=== PATIENT | female | born 1985 | race Hispanic/Latino ===

== ENCOUNTER 2016-09-30 16:37 | Emergency (ER) | payer OTHER ==
[2016-09-30 17:08] VITALS: BP 116/71; PULSE 70; RESP 16; TEMP 98.2; O2SAT 100
--- NOTE | 2016-09-30 18:35 | ED PDOC ---
Upper Extremity Pain/Injury Time Seen by Provider: 09/30/16 17:53 Chief Complaint (Nursing): Upper Extremity Problem/Injury Chief Complaint (Provider): Left Finger Tingling/Bruising History Per: Patient History/Exam Limitations: no limitations Onset/Duration Of Symptoms: Days (x2) Current Symptoms Are (Timing): Still Present Additional Complaint(s): 17:53 Barrie Craft is a 31 year old female that presents to the ED with a chief complaint of tingling and bruising to the medial and distal phalanges on the second digit of her left hand. Patient states that she went to the ER yesterday and had blood work done, which showed no abnormalities, and was given hot compresses, but that her symptoms still remain. She also states that she has been developing a lot of cysts on her body recently, and that a few weeks ago there may have been "a blackhead" on the second digit of her left hand that she "picked at," but she is not completely certain if that might be the cause. Pt seen and evaluated by her PMD, Dr. Moreno, earlier today, who sent her to the ED fur further evaluation and management. PMD: Erik Moreno Past Medical History Reviewed: Historical Data, Nursing Documentation, Vital Signs Vital Signs: Last Vital Signs Temp 98.2 F 09/30/16 17:06 Pulse 70 09/30/16 17:06 Resp 16 09/30/16 17:06 BP 116/71 09/30/16 17:06 Pulse Ox 100 09/30/16 17:06 - Medical History PMH: No Chronic Diseases - Surgical History Surgical History: No Surg Hx - Family History Family History: States: Unknown Family Hx - Living Arrangements Living Arrangements: With Family - Social History Current smoker - smoking cessation education provided: No Alcohol: Social Drugs: Denies - Allergies Allergies/Adverse Reactions: Allergies Allergy/AdvReac Type Severity Reaction Status Date / Time amoxicillin Allergy RASH Verified 09/30/16 17:06 Penicillins Allergy RASH Verified 09/30/16 17:06 Review of Systems ROS Statement: Except As Marked, All Systems Reviewed And Found Negative Musculoskeletal: Positive for: Hand Pain (left hand bruising and tingling of second digit) Physical Exam - Reviewed Nursing Documentation Reviewed: Yes Vital Signs Reviewed: Yes - Physical Exam Appears: Positive for: Non-toxic, No Acute Distress Head Exam: Positive for: ATRAUMATIC, NORMOCEPHALIC Skin: Positive for: Normal Color, Warm Extremity: Positive for: Normal ROM (full ROM of second digit left hand), Other (tingling and ecchymosis of medial and distal phalanges on the second digit of left hand. Distal sensation intact. FROM) Neurologic/Psych: Positive for: Alert, Oriented - Laboratory Results Result Diagrams: 09/30/16 18:40 09/30/16 18:40 - ECG O2 Sat by Pulse Oximetry: 100 (RA) Pulse Ox Interpretation: Normal Medical Decision Making Medical Decision Makin:32 Initial Impression: Bruising and Tingling of Second Digit of Left Hand/Possible Vasculitis Initial Plan: * CMP * CBC * Erythrocyte Sedimentation Rate * X-Ray Left Hand Second Digit * US Left Hand * Reevaluation Labs resulted and reviewed with Pt who demonstrated full understanding US of digit Negative XR negative Case discussed with Dr. Moreno who agreed pt stable for discharge at this time, will follow up in office. Scribe Attestation: Documented by Malathi Molina, acting as a scribe for Brook Brownlee PA-C. Provider Scribe Attestation: All medical record entries made by the Scribe were at my direction and personally dictated by me. I have reviewed the chart and agree that the record accurately reflects my personal performance of the history, physical exam, medical decision making, and the department course for this patient. I have also personally directed, reviewed, and agree with the discharge instructions and disposition. Disposition - Clinical Impression Clinical Impression: Discoloration of skin of finger - Patient ED Disposition Is Patient to be Admitted: No - Disposition Referrals: Ricki Wooten MD [Staff Provider] - Disposition: Routine/Home Disposition Time: 12:56 Condition: STABLE Instructions: Finger Sprain (ED) - POA Present On Arrival: None
[2016-09-30 19:12] LABS: BASO % 0.5 % (0.0-2.0); EOS % 0.8 % (0.0-4.0); HEMATOCRIT 40.7 % (34.0-47.0); LYMPH # 1.7 K/uL (1.0-4.3); LYMPH % 26.6 % (20.0-40.0); MEAN CELL VOLUME 80.3 fl (81.0-99.0); MEAN CORPUSCULAR HEMOGLOBIN 25.8 pg (27.0-31.0); MEAN CORPUSCULAR HGB CONC 32.1 g/dL (33.0-37.0); MEAN PLATELET VOLUME 9.5 fl (7.2-11.7); MONO # 0.5 K/uL (0.0-0.8); MONO % 7.3 % (0.0-10.0); NEUT # 4.2 K/uL (1.8-7.0); NEUT % 64.8 % (50.0-75.0); NRBC % 0.2 % (0.0-0.0); RED CELL DISTRIBUTION WIDTH 15.3 % (11.5-14.5); WHITE BLOOD COUNT 6.4 K/uL (4.8-10.8)
[2016-09-30 19:22] LABS: ALB/GLOB RATIO 1.2 (1.0-2.1); ALKALINE PHOSPHATASE 74 U/L (38-126); ALT/SGPT 21 U/L (9-52); AST/SGOT 28 U/L (14-36); BILIRUBIN,TOTAL 0.9 mg/dl (0.2-1.3); BLOOD UREA NITROGEN 14 mg/dl (7-17); CARBON DIOXIDE 26 mmol/L (22-30); CHLORIDE 104 mmol/L (98-107); GFR AFRICAN-AMERICAN > 60; GLUCOSE,RANDOM 88 mg/dL (65-105); SODIUM 144 mmol/l (132-148); TOTAL PROTEIN 8.5 G/DL (6.3-8.2)
--- NOTE | 2016-09-30 21:00 | US ---
EXAM: US Left Upper Extremity Non-Vascular, Complete CLINICAL HISTORY: 31 years old, female; Signs and symptoms; Numbness; Finger; Left; Additional info: Attn left 2nd digit TECHNIQUE: Real-time ultrasound scan of the left upper extremity with image documentation. EXAM DATE/TIME: 09/30/2016 6:32 PM COMPARISON: No relevant prior studies available. FINDINGS: Scanning of the left second finger soft tissues was performed, in the area of clinical interest. No solid or cystic masses are seen sonographically. There is no evidence of significant soft tissue edema. IMPRESSION: No sonographic abnormality identified in the left second finger soft tissues, in the area of clinical interest. See above for remaining findings.
--- NOTE | 2016-09-30 21:43 | US ---
EXAM: US Duplex Left Upper Extremity Arteries CLINICAL HISTORY: 31 years old, female; Signs and symptoms; Other: Numbness ist digit lt arm; Additional info: Attn left 2nd digit TECHNIQUE: Real-time ultrasound scan of the arteries of the left upper extremity with 2-D shah scale, color Doppler flow and spectral waveform analysis. EXAM DATE/TIME: 09/30/2016 6:32 PM COMPARISON: No relevant prior studies available. FINDINGS: Flow is seen in the left subclavian, axillary, brachial, ulnar, and radial arteries. There is no evidence of occlusion. There appear to be normal triphasic waveforms in the left subclavian, axillary, brachial, ulnar, and radial arteries. Peak systolic velocities are as follows, in centimeters per second: Left subclavian artery: 104 Left axillary artery: 82 Left brachial artery: 91 Left ulnar artery: 42 Left radial artery: 48 IMPRESSION: No evidence of occlusion or other acute abnormality of the major left arm arteries. See above for remaining findings.
--- NOTE | 2016-10-01 08:07 | RAD ---
PROCEDURE: Left Index finger radiographs. HISTORY: attn left 2nd digit COMPARISON: None. TECHNIQUE: AP radiograph of the left hand, as well as spot oblique and lateral images of index finger were obtained. FINDINGS: LEFT INDEX FINGER: Normal left index finger, without fracture or focal lesion. Remainder of the left hand (as seen on the AP view) grossly intact. JOINTS: Normal. SOFT TISSUES: Normal. OTHER FINDINGS: None. IMPRESSION: Normal left index finger radiographs.
== END 2016-09-30 23:07 | disposition home or self-care (01) ==
LOC: H.ER 16:37
DX: R20.0 Anesthesia of skin (principal); L81.9 Disorder of pigmentation, unspecified; M79.645 Pain in left finger(s)